=== PATIENT | male | born 1995 | race Caucasian/White ===

== ENCOUNTER 2024-07-04 04:18 | Emergency (ER) | payer BC ==
[2024-07-04] MEDS: Diclofenac Sodium 1% Gel 100 GM Tube TOP ONE (05:43)
[2024-07-04] MEDS: Orphenadrine 100 MG Tab.ER PO SCH (05:43)
[2024-07-04 05:51] LABS: BASOPHILS ABSOLUTE AUTO 0.1 K/mm3 (0.0-0.2); BASOPHILS PERCENT AUTO 0.6 % (0.0-1.0); EOSINOPHILS ABSOLUTE AUTO 0.2 K/mm3 (0.0-0.4); EOSINOPHILS PERCENT AUTO 2.1 % (0.0-6.0); HEMATOCRIT 44.6 % (42.0-52.0); HEMOGLOBIN 15.1 gm/dl (14.0-18.0); IMMATURE GRAN ABSOLUTE AUTO 0.02 K/mm3 (0.00-0.05); IMMATURE GRAN PERCENT AUTO 0.2 % (0.0-0.4); LYMPHOCYTES PERCENT AUTO 34.7 % (24.0-44.0); MEAN CORPUSCULAR HGB CONC 33.9 g/dl (32.0-36.0); MEAN CORPUSCULAR VOLUME 85.8 fl (83.0-99.0); MEAN PLATELET VOLUME 8.9 fl (9.4-12.4); MONOCYTES ABSOLUTE AUTO 0.6 K/mm3 (0.0-0.8); MONOCYTES PERCENT AUTO 7.1 % (0.0-8.0); NEUTROPHILS ABSOLUTE AUTO 4.8 K/mm3 (1.8-7.7); NEUTROPHILS PERCENT AUTO 55.3 % (41.0-71.0); PLATELET COUNT,PLT 296 K/mm3 (150-400); WHITE BLOOD CELL COUNT,WBC 8.59 K/mm3 (3.9-11.3)
[2024-07-04 06:18] LABS: A/G RATIO 1.3 (1-2); ANION GAP 13.2 (5-15); BILIRUBIN TOTAL 0.6 mg/dL (0.2-1.0); CALCIUM 8.7 mg/dL (8.5-10.1); CREATININE 0.8 mg/dL (0.7-1.3); EST CRCL DRUG DOSING (CG) 149.03 mL/min; POTASSIUM,K 4.2 mEq/L (3.5-5.1); PROTEIN TOTAL,TP 7.1 g/dl (6.4-8.2)
[2024-07-04] MEDS ORDERED: droPERidol 5 MG/2 ML SDV IM ONE ×3 (06:27→06:52)
[2024-07-04] MEDS: Haloperidol Lactate 5 MG/ML SDV IM ONE (07:03)
[2024-07-04] MEDS: diphenhydrAMINE 50 MG/ML SDV IM ONE (07:03)
== END 2024-07-04 08:00 | disposition home or self-care (01) ==
LOC: JD.ED 04:18
DX: M99.09 Segmental and somatic dysfunction of abdomen and other regions (principal); M62.838 Other muscle spasm; Z79.899 Other long term (current) drug therapy; Z87.891 Personal history of nicotine dependence
CPT/HCPCS: 36415; 71046; 80053; 84484; 85025; 93005; 96372; 99284; A9270; J1200; J1630; 93010